=== PATIENT | female | born 1975 | race Caucasian/White ===

== ENCOUNTER 2020-01-09 16:18 | Outpatient (CLI) | payer BC, SELFPAY ==
--- NOTE | ~2020-01-09 | XR_ITS ---
XR lumbar spine 6V w bending 01/09/2020 16:50 Indication: Back pain Procedure: 7 views lumbar spine Comparison: No prior studies for comparison. Findings: Vertebral body and disc heights are preserved. No fracture or traumatic malalignment. No si gnificant alteration of alignment with flexion/extension. There is an IUD in the pelvis. Pedicles int act. Normal lumbar lordosis. Impression: 1: No significant abnormality of the lumbar spine. Reviewed, dictated and finalized at location A. Impression: 1: No significant abnormality of the lumbar spine.
== END 2020-01-09 16:19 | disposition home or self-care (01) ==
PROVIDERS: PCP Family Medicine; Visit Provider Physician Assistant
DX: M54.42 Lumbago with sciatica, left side (principal); G89.29 Other chronic pain
CPT/HCPCS: 72114

== ENCOUNTER → 2021-06-11 16:27 | Outpatient (CLI) | payer BC, SELFPAY ==
--- NOTE | ~2021-06-11 | MM_ITS ---
EXAMINATION: MM screening [facility] BI w paris HISTORY: Screening mammogram TECHNIQUE: Craniocaudal and mediolateral oblique 3-D tomosynthesis images were obtained and synthetic 2-D images were generated. CAD analysis was submitted and interpreted. COMPARISON: 09/17/2015, 09/14/2015 BREAST PARENCHYMAL COMPOSITION: The breasts are extremely dense, which lowers the sensitivity of mamm ography. FINDINGS: There is no evidence of suspicious mass, calcification, or architectural distortion to sugg est malignancy in either breast. There has been no suspicious interval change. IMPRESSION: 1. No mammographic evidence of malignancy. 2. Recommend routine screening mammography in one year. BI-RADS Category 1: Negative Reviewed, dictated and finalized at location A. 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
== END ==
PROVIDERS: Visit Provider Obstetrics & Gynecology
DX: Z12.31 Encounter for screening mammogram for malignant neoplasm of breast (principal)
CPT/HCPCS: 77063; 77067

== ENCOUNTER 2022-07-13 08:42 | Emergency (ER) | payer BC, SELFPAY ==
[2022-07-13 08:53] VITALS: BP 138/81; PULSE 102; RESP 18; TEMP 37.4; O2SAT 100
--- NOTE | 2022-07-13 09:00 | ED.URI ---
HPI - URI/Sore Throat General Chief Complaint: Upper Respiratory Infection Stated Complaint: Sore Throat,Body Aches,Bilateral Ear Irritation Time Seen by Provider: 07/13/22 09:00 Source: patient Mode of arrival: ambulatory Limitations: no limitations History of Present Illness HPI Narrative: 47-year-old female presents with complaint of sore throat, body aches, fever, fatigue, headaches for 4 days. Reports strep exposure from her daughter. States that her grand children at her house twice a week and also may have had strep. Taking Tylenol without relief of pain. All systems reviewed and negative except as noted above. Related Data Home Medications Medication Instructions Recorded Confirmed norethindrone 1 mg-ethinyl 1 tablet PO DAILY 07/13/22 07/13/22 estradiol 10 mcg (24)-iron 10 mcg(2) tablet (Lo Loestrin Fe) Allergies Allergy/AdvReac Type Severity Reaction Status Date / Time No Known Allergies Allergy Unverified 07/13/22 08:52 Review of Systems Review of Systems: CONSTITUTIONAL: reports fever, fatigue, chills, or sweats. EYES: Denies visual changes, redness, or discharge. ENT: Denies rhinorrhea, congestion . Reports sore throat. Denies otalgia. CARDIOVASCULAR: Denies chest pain, palpitations, or edema. RESPIRATORY: Denies cough or dyspnea. GASTROINTESTINAL: Denies abdominal pain, nausea, vomiting, or diarrhea. GENITOURINARY: Denies dysuria or hematuria. SKIN: Denies rash or itching. MUSCULOSKELETAL: Denies back pain, joint pain, or myalgia. NEUROLOGIC: Denies headache, numbness, or weakness. PSYCHIATRIC: Denies anxiety or depression. All other systems reviewed are negative, except as documented in HPI. [facility] Past Medical History Medical History (Updated 07/13/22 @ 09:07 by Angela Louis NP) Anxiety Fear of flying History of Graves' disease Social History Social History Smoking status: Former smoker Alcohol intake: current Comments At time of signature, agree with nursing past medical, surgical, social and family history. There is no relevant family history pertinent to the presenting complaint. Exam Narrative: GENERAL: This is a well-nourished, well-developed patient, in no apparent distress. HEAD: normocephalic, atraumatic. EYES: PERRL. Sclera clear/white. Vision is grossly intact. EARS: External ears normal, auditory canals clear and without drainage, TMs normal without perforation. Hearing grossly intact. NOSE: External nose normal with no obvious nasal discharge, nares without redness, no rhinorrhea. THROAT: Mucous membranes moist, erythema and swelling posterior pharynx. Tonsils 1+ bilaterally . no exudates. NECK: Neck supple, non-tender without lymphadenopathy, masses or thyromegaly. CARDIOVASCULAR: Regular rate and rhythm without murmurs, gallops, or rubs. RESPIRATORY: Clear to auscultation. Breath sounds equal bilaterally. No wheezes, rales, or rhonchi. SKIN: warm, Dry, intact with no suspicious lesions or rash, good texture and turgor. NEURO: awake, alert, and oriented to person, place and time. There were no obvious focal neurologic abnormalities. EXTREMITIES: No joint tenderness, effusion, or edema noted. Course Course Level of Care: Express Care Visit Vital Signs Vital signs: Vital Signs Temperature 37.4 C 07/13/22 08:53 Pulse Rate 102 H 07/13/22 08:53 Respiratory Rate 18 07/13/22 08:53 Blood Pressure 138/81 07/13/22 08:53 Pulse Oximetry 100 07/13/22 08:53 Oxygen Delivery Room Air 07/13/22 08:53 Temperature 37.4 C 07/13/22 08:53 Pulse Rate 102 H 07/13/22 08:53 Respiratory Rate 18 07/13/22 08:53 Blood Pressure 138/81 07/13/22 08:53 Pulse Oximetry 100 07/13/22 08:53 Oxygen Delivery Room Air 07/13/22 08:53 MDM - URI/Sore Throat MDM Narrative Medical decision making narrative: Patient is aware of diagnosis, understands and agrees to treatment wesley
== END 2022-07-13 09:11 | disposition home or self-care (01) ==
PROVIDERS: Emergency Provider Nurse Practitioner Family; PCP Family Medicine
DX: J02.0 Streptococcal pharyngitis (principal); E05.00 Thyrotoxicosis with diffuse goiter without thyrotoxic crisis or storm
CPT/HCPCS: 99213; G0463

== ENCOUNTER 2024-01-09 14:35 | Emergency (ER) | payer OTHER, SELFPAY ==
--- NOTE | ~2024-01-09 | XR_ITS ---
EXAMINATION: XR foot LT min 3V DATE: 01/09/2024 15:02 INDICATION: Dropped a table onto the left great toe 6 days prior TECHNIQUE: Dorsoplantar, two oblique and lateral views of the left foot were obtained. COMPARISON: None. FINDINGS: Nondisplaced fracture without evident intra-articular extension with subtle linear lucent fracture li slava extending from the mid to distal aspect of the left first distal phalanx. Bone alignment remains essentially anatomic. No other fractures identified. Mild osteoarthritis at the first metatarsophalan geal, the naviculocuneiform and a few tarsometatarsal and interphalangeal joints. Soft tissue swellin g about the distal great toe. IMPRESSION: 1. Subtle nondisplaced likely extra articular fracture of the mid to distal left first distal phalanx . Reviewed, dictated and finalized at location A. IMPRESSION: 1. Subtle nondisplaced likely extra articular fracture of the mid to distal lef t first distal phalanx.
[2024-01-09 14:48] VITALS: BP 151/102; PULSE 68; RESP 15; TEMP 36.4; O2SAT 100
--- NOTE | 2024-01-09 14:53 | ED.LOWEXIN ---
HPI - Extremity Injury (Lower) General Chief Complaint: Extremity Injury, Lower Stated Complaint: need an xray Time Seen by Provider: 01/09/24 14:52 Source: patient, RN notes reviewed and old records reviewed Mode of arrival: ambulatory Limitations: no limitations History of Present Illness HPI Narrative: 48-year-old female to [facility] with bruising, swelling to the left great toe. States that hit a table was dropped on her toe on Monday, 6 days ago. Has been icing it and elevating it. Onset (ago): day(s) (6) Related Data Home Medications Medication Instructions Recorded Confirmed norethindrone 1 mg-ethinyl 1 tablet PO DAILY 07/13/22 01/09/24 estradiol 10 mcg (24)-iron 10 mcg(2) tablet (Lo Loestrin Fe) Allergies Allergy/AdvReac Type Severity Reaction Status Date / Time No Known Allergies Allergy Verified 01/09/24 14:51 Review of Systems Review of Systems: All systems reviewed & are unremarkable except as noted in HPI and below Constitutional: Constitutional: Reports no additional constitutional complaints Eyes: Eyes: Reports no additional eye complaints ENT: Reports system reviewed and no additional complaints, except as documented Cardiovascular: Cardiovascular: Reports no additional cardiovascular complaints, Denies chest pain and Denies dyspnea Respiratory: Respiratory: Reports no additional respiratory complaints, Denies chest congestion, Denies cough and Denies dyspnea Gastrointestinal: Gastrointestinal: Reports no additional gastrointestinal complaints, Denies abdominal pain, Denies nausea and Denies vomiting Musculoskeletal: Musculoskeletal: Reports as per HPI Integumentary/Breasts: Skin/Breast: Reports system reviewed and no additional complaints, except as docu Neurologic: Reports system reviewed and no additional complaints, except as documented Psychiatric: Psychiatric: Reports no additional psychiatric complaints Allergic/Immunologic: Allergic/Immunologic: Reports no additional allergic/immunologic complaints PMFSH Past Medical History Medical History Anxiety Fear of flying History of Graves' disease Family History Family History Mother Hypertension Hypothyroidism Social History Social History Smoking status: Former smoker Alcohol intake: current Substance use type: does not use Do You Feel Safe in your Home?: Yes Lack of Transportation: No Lack of Food: Never True Current Housing: I Have Housing Concerned About Future Housing: No Difficulty Paying Gas/Electric Bills: No Difficulty Paying for Meds: No Currently Unemployed: No Education: Bachelor's Degree Difficulty w/ Childcare or Family Care: No Living arrangements: with family Occupation/Education: occupation 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 There is no relevant family history pertinent to the patient complaint. Exam Const: General: cooperative, healthy appearing, comfortable, no acute distress, well developed, alert and well nourished Nutritional Appearance: well nourished Orientation/consciousness: patient oriented x3 Limitations: no limitations HENMT: Head: normal to inspection Ears: hearing grossly normal bilaterally and external ears normal Face/Nose/Sinus: Normal external nose present, Normal nares present, Normal nasal mucous membranes and turbinates present, normal facial exam and face symmetric Face and sinus: normal facial exam and face symmetric Eyes: General: appearance normal, both eyes and all related s
== END 2024-01-09 15:33 | disposition home or self-care (01) ==
PROVIDERS: Emergency Provider Nurse Practitioner; PCP Family Medicine
DX: S92.425A Nondisplaced fracture of distal phalanx of left great toe, initial encounter for closed fracture (principal); W20.8XXA Other cause of strike by thrown, projected or falling object, initial encounter; E05.00 Thyrotoxicosis with diffuse goiter without thyrotoxic crisis or storm
CPT/HCPCS: 73630; 99214; G0463

== ENCOUNTER 2024-02-23 14:58 | Outpatient (CLI) | payer OTHER, SELFPAY ==
--- NOTE | ~2024-02-23 | MM_ITS ---
EXAMINATION: MM screening ulises BI w paris HISTORY: Screening TECHNIQUE: Craniocaudal and mediolateral oblique 3-D tomosynthesis images were obtained and synthetic 2-D images were generated. CAD analysis was submitted and interpreted. COMPARISON: Comparison to multiple prior studies sequentially, with oldest reviewed study dated 09/13. BREAST PARENCHYMAL COMPOSITION: Dense: The breasts are extremely dense, which lowers the sensitivity of mammography. FINDINGS: There is no evidence of suspicious mass, calcification, or architectural distortion to sugg est malignancy in either breast. There has been no suspicious interval change. IMPRESSION: 1. No mammographic evidence of malignancy. 2. Recommend routine screening mammography in one year. BI-RADS Category 1: Negative Reviewed, dictated and finalized at location B.
== END 2024-02-23 14:59 ==
PROVIDERS: PCP Family Medicine; Visit Provider Obstetrics & Gynecology
DX: Z12.31 Encounter for screening mammogram for malignant neoplasm of breast (principal)
CPT/HCPCS: 77063; 77067

== ENCOUNTER 2025-03-11 14:59 | Outpatient (CLI) | payer OTHER, SELFPAY ==
--- OUTSIDE RECORDS SUMMARY | 2024-06-20 04:20 | XMS_ITS ---
Author Organization [facility] Address [address], [place] [id number] Care Team Providers Care Home Care Giver Name Role Phone Gena Strickland Primary Care Provider REASON FOR VISIT graves disease symptoms coming back Encounters Encounter Location Date Provider Diagnosis [facility] [address] Strickland [address] [place] [address] 06/20/2024 Gena Strickland Plan Of Treatment No Information Progress Notes * Amena CEEDOB: 3 (49 yo F)Acc No.[id number]:06/20/2024 Progress Notes Patient: Amena Cason Provider: Becky Strickland MD :1975 A ge:49 Y S ex:Female Date:06/20/2024 Address:[facility] Radha Romero [facility] Subjective: * Chief Complaints: * G raves disease symptoms coming back * Electronic signature of Lavell Strickland MD on 03/11/2025 at 04:24 PM CDT Sign off status: Pending * Provider: Becky Strickland MD Date: 08/21/2023 Generated for Printi ng/Faxing/eTransmitting on: 0 03/11/2025 04:24 PM CDT
--- OUTSIDE RECORDS SUMMARY | 2024-06-20 04:20 | XMS_ITS ---
Author Organization [facility] Address [address] [place] [address] Care Team Providers Care Account Information Clerk Name Role Phone Gena Strickland Primary Care Provider [phone] REASON FOR VISIT graves disease symptoms coming back Encounters Encounter Location Date Provider Diagnosis [facility] - Gena Strickland [address] [place] [address] 06/20/2024 Gena Strickland Plan Of Treatment No Information Progress Notes * DEVYNAmena TAPIADOB: 3 (49 yo F)Acc No.[id number]:06/20/2024 Progress Notes Patient: Amena CONWAY Provider: Becky Strickland MD :1975 A ge:49 Y S ex:Female Date:06/20/2024 Address:[facility] Radha Romero [facility] Subjective: * Chief Complaints: * 1 . Graves disease symptoms coming back. * Medical History: Objective: * Vitals: Assessment: Plan: * Treatment: * Billing Information: * Visit Code: * Procedure Codes: * Electronic signature of Lavell Strickland MD on 03/11/2025 at 04:24 PM CDT Sign off status: Pending * Provider: Becky Strickland MD Date: 08/21/2023 Generated for Annie campbell/Nolvia/Piteritting on: 03/11/2025 04:24 PM CDT
--- NOTE | ~2025-03-11 | MM_ITS ---
EXAMINATION: MM screening ulises BI w paris HISTORY: Screening TECHNIQUE: Craniocaudal and mediolateral oblique 3-D tomosynthesis images were obtained and synthetic 2-D images were generated. CAD analysis was submitted and interpreted. COMPARISON: Comparison to multiple prior studies sequentially, with oldest reviewed study dated , 02/20/2013 BREAST PARENCHYMAL COMPOSITION: The breasts are extremely dense, which lowers the sensitivity of mammography. FINDINGS: There is no evidence of suspicious mass, calcification, or architectural distortion to suggest malignancy in either breast. IMPRESSION: 1. No mammographic evidence of malignancy. 2. Recommend routine screening mammography in one year. BI-RADS Category 1: Negative Reviewed, dictated and finalized at location B.
--- OUTSIDE RECORDS SUMMARY | 2025-03-11 16:24 | XMS_ITS | Clinical Summary ---
Author Organization [facility] Address [address] [place] [address] Care Team Providers Care Lvn Home Health Name Role Phone Unavailable Primary Care Provider Unavailabl e Immunizations Immunization Administration Dates Next Due Covid-19, Mrna, Lnp-s, Pf, 30 Mcg/0.3 Ml Dose (P fizer) 05/05/2021 Social History Tobacco Use Types Packs/Day Years Used Date Smoking Tobacco: Never Assessed Comments Unknown Sex and Gender Information Value Date Recorded Sex Assigned at Not on file Legal Sex Female 11:00 AM CDT Gender Identity Not on file Sexual Orientation Not on file Plan of Treatment Health Maintenance Due Date Last Done Comments Hepatitis C Virus (HCV) Screening 1975 TdaP Immunization 1975 Hepatitis B Immunization (1 of 3 - 19+ 3-dose series) 1992 Pap Smear 1994 Cervical Cancer Screening (CCS) 2003 HPV/Cotest 2003 Cologuard 2018 Colonoscopy 2018 Colorectal Cancer Screening 2018 Immunochemical Fecal Occult Blood 2018 Pneumococcal Immunization (5 0+ years) (1 of 1 - PCV) 2023 Zoster Immunization (1 of 2) 2023 SARS-COV-2 Immunization (4 - season) 2024 05/05/2021, 07/30/2020, 07/09/2020 Influenza Immunization (#1) 2025 Respiratory Syncytial Virus (RSV) Immunization (Adult) (1 - 1-dose 75+ series) 2048 Human Papillomavirus (HPV) Immunization Aged Out No longer eligible b ased on patient's age to complete this topic Meningococcal Immunization (ACWY) Aged Out No longer eligible b ased on patient's age to complete this topic Rotavirus Immunization Aged Out No lo nger eligible based on patient's age to complete this topic
--- OUTSIDE RECORDS SUMMARY | 2025-03-11 16:24 | XMS_ITS | Patient Health Record ---
Author Organization [facility] Address [address] [place] [address] Care Team Providers Care Workforce Consultant Name Role Phone Gena Strickland Primary Care Provider [phone] Reason For Referral No Information Plan Of Treatment No Information
--- OUTSIDE RECORDS SUMMARY | 2025-03-11 16:24 | XMS_ITS | Patient Health Record ---
Author Organization [facility] Address [address] [place], [place] [id number] Care Team Providers Care Fitness Sales Consultant Name Role Phone Gena Strickland Primary Care Provider [phone] Reason For Referral No Information Plan Of Treatment No Information
== END 2025-03-11 15:00 | disposition home or self-care (01) ==
LOC: CHSIMG 15:00
PROVIDERS: PCP Family Medicine; Visit Provider Obstetrics & Gynecology
DX: Z12.31 Encounter for screening mammogram for malignant neoplasm of breast (principal)
CPT/HCPCS: 77063; 77067